=== PATIENT | female | born 1980 | race African-American/Black ===

== ENCOUNTER 2022-05-29 23:19 | Emergency (ER) | payer MEDICAID ==
[~2022-05-29] VITALS: Ht 165.1 cm; Wt 99.7 kg
[2022-05-29 23:28] VITALS: BP 132/66
[2022-05-30] MEDS ORDERED: ALBU18HF2 IH (00:19)
== END 2022-05-30 01:10 | disposition home or self-care (01) ==
LOC: ER 23:19
DX: Z76.0 Encounter for issue of repeat prescription (principal); J45.909 Unspecified asthma, uncomplicated
CPT/HCPCS: 99283

== ENCOUNTER 2024-07-10 09:57 | Emergency (ER) | payer MEDICAID, OTHER ==
[~2024-07-10] VITALS: Ht 165.1 cm; Wt 96.0 kg
[~2024-07-10 09:57] MED LIST: ALBU18HF2 IH
[2024-07-10 10:07] VITALS: O2SAT 96
[2024-07-10 10:14] VITALS: BP 152/84; TEMP 100.3
[2024-07-10 11:20] VITALS: PULSE 120; RESP 24; O2SAT 98
[2024-07-10] MEDS: IPRATROPIUM/ALBUTEROL 0.5-3(2.5)MG/3ML NEB HHN STA (11:20)
[2024-07-10] MEDS: IPRATROPIUM/ALBUTEROL 0.5-3(2.5)MG/3ML NEB HHN ONE ×2 (12:10→13:15)
[2024-07-10] MEDS: DEXAMETHASONE 4MG TABLET PO ONE (12:36)
[2024-07-10] MEDS ORDERED: ALBU18HF2 IH (14:33)
== END 2024-07-10 14:56 | disposition home or self-care (01) ==
LOC: ER 09:57
DX: J45.901 Unspecified asthma with (acute) exacerbation (principal)
CPT/HCPCS: 71045; 93005; 94070; 99285; J8540; Z7610; 99284